=== PATIENT | female | born 1955 | race Two or more races ===

== ENCOUNTER 2020-06-06 15:46 | Outpatient (AMBR) | payer MEDICARE, MEDICAID, SELFPAY ==
--- NOTE | 2020-06-06 16:08 | PT.OIERPT ---
PT OP Initial Eval Patient Information Visit Reasons: post op left wrist Medical Diagnosis: S52.572D Treatment Dx #1: post op L wrist ORIF Start of Care: 06/06/20 Date of Onset: 05/16/20 Initial Assessment Subjective Pt is 65 yr old greek speaking female who presents to therapy with L wrist brace s/p ORIF to repair displaced distal radius FX. It's not hurting her much now and says 5/10 pain level. She is wearing the brace part time receptionist. PMH: OA, DM Imaging: Xrays of wrist pre and post op in EMR Pt goal: less wrist pain and to move it better. Objective L Wrist AROM: Rad deviation: 6 deg Ulnar dev: 15 deg Supination: 35 deg Pronation: 35 deg Wrist flexion: 45 deg Extension: 35 deg Hand AROM: MCP flexion of digits 90 deg PIP flexion: 90 deg [employer] Professor strength: L: didn't register Assessment Pt presents with limited L wrist and hand ArOM post op 3 weeks distal radius ORIF. Pt has ability to make fist and limited ROM into wrist extension and pronation. Pt was taught HEP of ROM therex with materials. Pt requires skilled therapy in order to reduce pain, improve ROM and strength of L wrist and hand. Short Term and Master Fisher Goals 1. Ind with HEP 2. Improved wrist AROM to 50 deg extension, flexion 50 deg 3. 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 Rx may include the following Rx's: 1. Manual therapy 2. Therex 3. Modalities as indicated, moist heat, ice, estim Frequency and Duration 2-3x a week for 6 weeks Certification Dates: 06/06/20 to 09/04/20
== END 2020-06-11 23:59 | disposition home or self-care (01) ==
PROVIDERS: PCP Family Medicine; Referring Provider Family Medicine; Visit Provider Orthopaedic Surgery
DX: S52.572D Other intraarticular fracture of lower end of left radius, subsequent encounter for closed fracture with routine healing (principal); M25.532 Pain in left wrist; E11.9 Type 2 diabetes mellitus without complications; Z98.890 Other specified postprocedural states; X58.XXXD Exposure to other specified factors, subsequent encounter
CPT/HCPCS: 97162

== ENCOUNTER 2020-07-11 16:57 | Outpatient (AMBR) | payer MEDICARE, MEDICAID, SELFPAY ==
--- NOTE | 2020-06-13 18:53 | PT.ODAYNRPT ---
PT Outpatient Daily Note Date of Service: 06/13/20 OP Daily Note Visit Reasons: right wrist pain Outpatient Physical Therapy Treatment Date: 06/13/20 Subjective: Same as time of evaluation Objective: See F/S for therex Assessment: Improved wrist flexion and extension ROm since evaluation Plan: Improve ROM of R wrist. Length of Time (minutes) of Treatment: 30 Minutes Office Procedures PT Procedures PT Date of Service: 06/13/20 Therapeutic Exercise 30 minutes: Yes
--- NOTE | 2020-06-15 18:46 | PT.ODAYNRPT ---
PT Outpatient Daily Note Date of Service: 06/15/20 OP Daily Note Visit Reasons: right wrist pain Outpatient Physical Therapy Treatment Date: 06/15/20 Subjective: Same as time of evaluation Objective: See F/S for therex Assessment: Improved wrist flexion and extension ROm since evaluation Plan: Improve ROM of R wrist. Length of Time (minutes) of Treatment: 30 Minutes Office Procedures PT Procedures PT Date of Service: 06/13/20 Therapeutic Exercise 30 minutes: Yes PT Procedures PT Date of Service: 06/15/20 Therapeutic Exercise 30 minutes: Yes
--- NOTE | 2020-06-21 18:35 | PT.ODAYNRPT ---
PT Outpatient Daily Note Date of Service: 06/21/20 OP Daily Note Visit Reasons: right wrist pain Outpatient Physical Therapy Treatment Date: 06/21/20 Subjective: The L wrist is swollen due to the haresh bandage being too tight. Objective: See F/S for therex Assessment: Improved wrist flexion and extension ROM in order to do the UBE today. Is cautious with the wrist and hand with therex and strengthening. Plan: Improve ROM of L wrist. Length of Time (minutes) of Treatment: 30 Minutes Office Procedures PT Procedures PT Date of Service: 06/21/20 Therapeutic Exercise 30 minutes: Yes PT Procedures PT Date of Service: 06/13/20 Therapeutic Exercise 30 minutes: Yes PT Procedures PT Date of Service: 06/15/20 Therapeutic Exercise 30 minutes: Yes
--- NOTE | 2020-06-27 17:40 | PT.ODAYNRPT ---
PT Outpatient Daily Note Date of Service: 06/27/20 OP Daily Note Visit Reasons: right wrist pain Outpatient Physical Therapy Treatment Date: 06/27/20 Subjective: She wears the haresh bandage for support. She has had less L wrist pain but has difficulty lifting anything that weighs as much as a gallon of milk. Objective: See F/S for therex MT: STM of scar incision x5' Assessment: Improved wrist flexion and extension ROM in order to do the UBE today. Is cautious with the wrist and hand with therex and strengthening. Plan: Improve ROM and strength of L wrist. Length of Time (minutes) of Treatment: 30 Minutes Office Procedures PT Procedures PT Date of Service: 06/21/20 Therapeutic Exercise 30 minutes: Yes PT Procedures PT Date of Service: 06/13/20 Therapeutic Exercise 30 minutes: Yes PT Procedures PT Date of Service: 06/15/20 Therapeutic Exercise 30 minutes: Yes PT Procedures PT Date of Service: 06/27/20 Therapeutic Exercise 30 minutes: Yes
--- NOTE | 2020-07-04 18:43 | PT.ODAYNRPT ---
PT Outpatient Daily Note Date of Service: 07/04/20 OP Daily Note Visit Reasons: right wrist pain Outpatient Physical Therapy Treatment Date: 07/04/20 Subjective: She wears the haresh bandage for support that she puts on around noon. She has had less L wrist pain but has difficulty lifting anything that weighs as much as a gallon of milk. Objective: See F/S for therex Wrist flexion AROM: 60 deg Extension: 45 deg Assessment: Improved wrist flexion and extension ROM in order to do the UBE today. Is cautious with the wrist and hand with therex and strengthening but making progress with goals. Plan: Improve ROM and strength of L wrist. Length of Time (minutes) of Treatment: 30 Minutes Office Procedures PT Procedures PT Date of Service: 06/21/20 Therapeutic Exercise 30 minutes: Yes PT Procedures PT Date of Service: 07/04/20 Therapeutic Exercise 30 minutes: Yes PT Procedures PT Date of Service: 06/13/20 Therapeutic Exercise 30 minutes: Yes PT Procedures PT Date of Service: 06/15/20 Therapeutic Exercise 30 minutes: Yes PT Procedures PT Date of Service: 06/27/20 Therapeutic Exercise 30 minutes: Yes
--- NOTE | 2020-07-11 19:01 | PT.ODAYNRPT ---
PT Outpatient Daily Note Date of Service: 07/11/20 OP Daily Note Visit Reasons: right wrist pain Outpatient Physical Therapy Treatment Date: 07/11/20 Subjective: She wears the haresh bandage less. She has had less L wrist pain and difficulty lifting a gallon of milk. Objective: See F/S for therex Wrist flexion AROM: 60 deg Extension: 45 deg Assessment: Improved wrist flexion and extension ROM in order to do the UBE today. Is cautious with the wrist and hand with therex and strengthening but making progress with goals. Plan: Improve ROM and strength of L wrist. Length of Time (minutes) of Treatment: 30 Minutes Office Procedures PT Procedures PT Date of Service: 06/21/20 Therapeutic Exercise 30 minutes: Yes PT Procedures PT Date of Service: 07/04/20 Therapeutic Exercise 30 minutes: Yes PT Procedures PT Date of Service: 07/11/20 Therapeutic Exercise 30 minutes: Yes PT Procedures PT Date of Service: 06/13/20 Therapeutic Exercise 30 minutes: Yes PT Procedures PT Date of Service: 06/15/20 Therapeutic Exercise 30 minutes: Yes PT Procedures PT Date of Service: 06/27/20 Therapeutic Exercise 30 minutes: Yes
== END 2020-07-11 23:59 | disposition home or self-care (01) ==
PROVIDERS: PCP Family Medicine; Referring Provider Family Medicine; Visit Provider Family Medicine
DX: S52.572D Other intraarticular fracture of lower end of left radius, subsequent encounter for closed fracture with routine healing (principal); M25.532 Pain in left wrist; E11.9 Type 2 diabetes mellitus without complications; X58.XXXD Exposure to other specified factors, subsequent encounter
CPT/HCPCS: 97110

== ENCOUNTER → 2024-12-08 | Outpatient (CLI) | payer MEDICARE, MEDICAID, SELFPAY ==
[2024-12-08 10:29] LABS: Alanine Aminotransferase 19 U/L (10-49); Albumin, Serum 4.5 gm/dL (3.4-4.8); Alkaline Phosphatase 120 U/L (46-116); Aspartate Amino Transferase 23 U/L (0-34); Bilirubin,Direct < 0.1 mg/dL (0.0-0.3); Bilirubin,Total 0.3 mg/dL (0.3-1.2); Total Protein 7.1 gm/dL (5.7-8.2)
== END | disposition home or self-care (01) ==
LOC: COPL 09:07
PROVIDERS: PCP Family Medicine; Referring Provider Internal Medicine Infectious Disease; Visit Provider Internal Medicine Infectious Disease
DX: B46.1 Rhinocerebral mucormycosis (principal); Z51.81 Encounter for therapeutic drug level monitoring
CPT/HCPCS: 36415; 80076

== ENCOUNTER → 2025-06-18 | Outpatient (CLI) | payer MEDICARE, MEDICAID, SELFPAY ==
[2025-06-18 11:49] LABS: Alanine Aminotransferase 10 U/L (10-49); Albumin, Serum 4.9 gm/dL (3.4-4.8); Alkaline Phosphatase 112 U/L (46-116); Aspartate Amino Transferase 24 U/L (0-34); Bilirubin,Direct < 0.1 mg/dL (0.0-0.3); Bilirubin,Total 0.3 mg/dL (0.3-1.2); Total Protein 7.0 gm/dL (5.7-8.2)
== END | disposition home or self-care (01) ==
LOC: COPL 10:20
PROVIDERS: PCP Family Medicine; Referring Provider Internal Medicine Infectious Disease; Visit Provider Internal Medicine Infectious Disease
DX: B46.1 Rhinocerebral mucormycosis (principal); Z51.81 Encounter for therapeutic drug level monitoring
CPT/HCPCS: 36415; 80076

== ENCOUNTER → 2025-07-23 | Outpatient (CLI) | payer MEDICARE, MEDICAID, SELFPAY ==
[2025-07-23 12:50] LABS: Anion Gap 9 (7-16); BUN/Creatinine Ratio 23 Ratio (12-20); Blood Urea Nitrogen 23 mg/dL (9-23); Calcium 9.8 mg/dL (8.3-10.6); Carbon Dioxide 26.2 mMol/L (20.0-31.0); Chloride 102 mMol/L (98-107); Creatinine (Component) 1.0 mg/dL (0.6-1.3); Glucose 284 mg/dL (74-106); Osmolality,Calculated 287 (275-295); Potassium 4.7 mMol/L (3.4-5.1); Sodium 137 mMol/L (136-145); eGFR > 60 See Note
== END | disposition home or self-care (01) ==
LOC: COPL 10:42
PROVIDERS: PCP Family Medicine; Referring Provider Internal Medicine Infectious Disease; Visit Provider Internal Medicine Infectious Disease
DX: Z00.00 Encounter for general adult medical examination without abnormal findings (principal); B46.1 Rhinocerebral mucormycosis
CPT/HCPCS: 36415; 80048

== ENCOUNTER → 2025-07-28 | Outpatient (CLI) | payer MEDICARE, MEDICAID, SELFPAY ==
--- NOTE | 2025-07-28 11:00 | XR_ITS ---
Examination: CT maxillofacial, with contrast 2-D sagittal and coronal reconstructions. 3-D reconstructions Date and time of exam: July 28, 2025, 1214 hours INDICATIONS: Sinus pressure and pain months CTDI: vol (mGy): 14.7 DLP: (mGycm): 288 Technique: Multiple axial images maxillofacial region, 3.0 mm slice thickness, post intravenous injection 50 cc Isovue 370. 2-D sagittal coronal reconstructions. 3-D reconstructions Low dose protocols were performed. One or more of the following dose reduction techniques were used; automated exposure control, adjustment of the mA and/or KV according to patient size, use of iterative reconstruction technique. Findings: Acute right frontal sinusitis Moderate chronic ethmoid sinusitis Moderate hypertrophy inferior nasal turbinates Significant sphenoid sinus disease Trace mucosal disease in the maxillary antra IMPRESSION: Pansinusitis, acute right frontal sinusitis
== END | disposition home or self-care (01) ==
PROVIDERS: Referring Provider Internal Medicine Infectious Disease; Visit Provider Internal Medicine Infectious Disease
DX: J01.40 Acute pansinusitis, unspecified (principal); J32.1 Chronic frontal sinusitis
CPT/HCPCS: 70487; A4649; Q9967